=== PATIENT | male | born 1935 | race Caucasian/White ===

== ENCOUNTER 2018-03-06 14:17 | Outpatient (CLI) | payer MEDICARE, OTHER ==
[~2018-03-06] VITALS: Ht 180.3 cm; Wt 99.8 kg
[~2018-03-06 14:17] MED LIST: APIX5TAB3 PO; ASPI-1265 PO; ATOR10TA70 PO; CARV-50 PO; DOCU-28 PO; DULO20CA50 PO; FLO0.4C PO; FURO40TA4 PO; GABA300C PO; HYDR-4353 PO; METF-436 PO; POTA20TA10 PO; THYR90TA PO; TICA90TA PO
[2018-03-06 16:00] LABS: TOTAL HEMOGLOBIN 9.8 G/dl (14.0-18.0)
[2018-03-06] MEDS ORDERED: albuterol 2.5 MG/3 ML nebule NEB ONE (16:20)
== END 2018-03-06 23:59 | disposition home or self-care (01) ==
LOC: VAS 14:17
PROVIDERS: ATTEND Internal Medicine Cardiovascular Disease
DX: I65.23 Occlusion and stenosis of bilateral carotid arteries (principal); I48.91 Unspecified atrial fibrillation; I50.9 Heart failure, unspecified; R91.8 Other nonspecific abnormal finding of lung field; E11.9 Type 2 diabetes mellitus without complications; E78.5 Hyperlipidemia, unspecified; Z87.891 Personal history of nicotine dependence; Z96.651 Presence of right artificial knee joint; Z85.46 Personal history of malignant neoplasm of prostate; Z85.51 Personal history of malignant neoplasm of bladder
CPT/HCPCS: 71046; 85018; 93880; 94060; 94727; 94729; 94760

== ENCOUNTER 2018-06-30 07:49 | Observation (INO) | payer MEDICARE, OTHER ==
[~2018-06-30] VITALS: Ht 182.9 cm; Wt 112.0 kg
[2018-06-30 09:07] LABS: BASOPHILS # (AUTO) 0.1 X10'3 (0-0.2); BASOPHILS % (AUTO) 0.8 % (0-1); EOSINOPHILS # (AUTO) 0.2 X10'3 (0-0.9); EOSINOPHILS % (AUTO) 2.7 % (0-6); HEMATOCRIT 39.4 % (42.0-52.0); HEMOGLOBIN 13.2 g/dl (14.0-17.9); LYMPHOCYTES # (AUTO) 0.9 X10'3 (1.1-4.8); LYMPHOCYTES % (AUTO) 13.2 % (21-51); MEAN CORPUSCULAR HEMOGLOBIN 29.3 PG (27.0-31.0); MEAN CORPUSCULAR HGB CONC 33.4 g/dL (33.0-36.5); MEAN CORPUSCULAR VOLUME 87.9 FL (78-98); MEAN PLATELET VOLUME 8.9 FL (7.4-10.4); MONOCYTES # (AUTO) 0.4 X10'3 (0-0.9); MONOCYTES % (AUTO) 5.8 % (2-12); NEUTROPHILS # (AUTO) 5.1 X10'3 (1.8-7.7); NEUTROPHILS % (AUTO) 77.5 % (42-75); PLATELET COUNT 109 X10'3 (140-440); RED BLOOD COUNT 4.49 X10'6 (4.70-6.10); RED CELL DISTRIBUTION WIDTH 19.3 % (11.5-14.5); WHITE BLOOD COUNT 6.5 X10'3 (4.5-11.0)
[2018-06-30 09:18] LABS: ALANINE AMINOTRANSFERASE 29 U/L (12-78); ALBUMIN 3.4 G/DL (3.4-5.0); ALKALINE PHOSPHATASE 109 IU/L (46-116); ANION GAP 8 (8-16); ASPARTATE AMINO TRANSFERASE 24 U/L (10-37); BILIRUBIN,TOTAL 0.5 MG/DL (0.1-1.0); BLOOD UREA NITROGEN 14 MG/DL (7-18); BUN/CREATININE RATIO 16.5 (5.4-32.0); CALCIUM 9.2 MG/DL (8.5-10.1); CHLORIDE 105 MMOL/L (99-107); CREATININE 0.85 MG/DL (0.60-1.10); GLUCOSE 111 MG/DL (70-104); SODIUM 142 MMOL/L (135-145); TOTAL CARBON DIOXIDE 29.1 MMOL/L (24-32); TOTAL PROTEIN 6.7 G/DL (6.4-8.2); eGFR 87 ML/MIN
[2018-06-30 09:23] LABS: INR 1.1 INR
[2018-06-30 09:35] LABS: CLARITY,URINE CLEAR (Clear); COLOR,URINE YELLOW (Yellow); GLUCOSE, URINE NEGATIVE (Neg); KETONES,URINE NEGATIVE (Neg); LEUKOCYTE ESTERASE ,URINE NEGATIVE (Neg); NITRITES, URINE NEGATIVE (Neg); OCCULT BLOOD,URINE NEGATIVE (Neg); PROTEIN,URINE NEGATIVE (Neg); UROBILINOGEN,URINE 0.2 E.U/dL (0.2-1.0)
[2018-06-30 09:38] LABS: UA COLLECTION TYPE CLN CATCH MIDSTREAM
[2018-06-30] MEDS ORDERED: mag hydrox/Alum hydrox/simeth 30ml oral suspension PO PRN (11:25)
[2018-06-30] MEDS ORDERED: potassium Cl 40MEQ/NS 500ml 500 ML IV PRN ×2 (11:25)
[2018-06-30] MEDS ORDERED: magnesium 2GM in 50ml NS 50 ML IV PRN (11:25)
[2018-06-30] MEDS ORDERED: magnesium 4gm in 100ml NS 100 ML IV PRN (11:25)
[2018-06-30] MEDS ORDERED: normal saline 1000ML IV soln IVB ONE (11:25)
[2018-06-30] MEDS ORDERED: acetaminophen 325mg tablet PO PRN ×2 (11:25)
[2018-06-30] MEDS ORDERED: magnesium Cl slow-release 64mg tablet PO PRN (11:25)
[2018-06-30] MEDS ORDERED: potassium Cl 20 mEq SR tablet PO PRN ×2 (11:25)
[2018-06-30] MEDS ORDERED: magnesium hydroxide 30ml (MOM) UD suspension PO PRN (11:25)
[2018-06-30] MEDS ORDERED: ondansetron/PF 4mg/2ml inj IV PRN (11:25)
[2018-06-30] MEDS: K and/or MAG REPLACEMENT MC SCH (11:55)
[2018-06-30] MEDS: normal saline 1000ml 1,000 ML IV SCH ×2 (12:08→15:50)
--- NOTE | 2018-06-30 14:28 | NUR ---
janine([phone]) helps take care of pt and his , any question you can call her.
--- NOTE | 2018-06-30 14:55 | NUR ---
Pt received to room [facility] via [facility], transferred to bed. Pt oriented to room, [facility].
[2018-06-30 15:00] VITALS: BP 131/79
[2018-06-30 18:00] VITALS: BP 121/66
--- NOTE | 2018-06-30 18:37 | NUR ---
Problems reprioritized. Patient report given, questions answered & plan of care reviewed with Rocio. Addendum: 06/30/18 at 1838 by Mavis Lawrence RN Amended: Links added.
[2018-06-30] MEDS: duloxetine 20mg capsule.DR PO SCH (20:00)
[2018-06-30] MEDS: apixaban 5mg tablet PO SCH (20:17)
[2018-06-30] MEDS: carVEDilol 12.5mg tablet PO SCH (20:17)
[2018-06-30] MEDS ORDERED: temazepam 15mg capsule PO PRN (21:00)
--- NOTE | 2018-06-30 21:21 | NUR ---
Patient in room U 3014. I have received report from YANELI Gamble and had the opportunity to ask questions and assume patient care. Addendum: 06/30/18 at 2127 by Rocio Catherine RN Amended: Links added.
[2018-06-30 22:09] VITALS: BP 122/70
[2018-07-01] VITALS (24 sets, daily range): BP systolic 121–158; BP diastolic 51–109
[2018-07-01 06:13] LABS: HEMATOCRIT 39.2 % (42.0-52.0); HEMOGLOBIN 13.2 g/dl (14.0-17.9); MEAN CORPUSCULAR HEMOGLOBIN 29.6 PG (27.0-31.0); MEAN CORPUSCULAR HGB CONC 33.8 g/dL (33.0-36.5); MEAN CORPUSCULAR VOLUME 87.8 FL (78-98); MEAN PLATELET VOLUME 9.2 FL (7.4-10.4); PLATELET COUNT 109 X10'3 (140-440); RED BLOOD COUNT 4.46 X10'6 (4.70-6.10); RED CELL DISTRIBUTION WIDTH 19.4 % (11.5-14.5)
--- NOTE | 2018-07-01 06:16 | NUR ---
Problems reprioritized. Patient report given, questions answered & plan of care reviewed with YANELI Miner. Addendum: 07/01/18 at 0617 by Rocio Catherine RN Amended: Links added.
[2018-07-01 06:17] LABS: ALBUMIN 3.2 G/DL (3.4-5.0); ANION GAP 8 (8-16); BLOOD UREA NITROGEN 9 MG/DL (7-18); BUN/CREATININE RATIO 11.1 (5.4-32.0); CHLORIDE 108 MMOL/L (99-107); CREATININE 0.81 MG/DL (0.60-1.10); GLUCOSE 107 MG/DL (70-104); MAGNESIUM 1.6 MG/DL (1.5-2.4); POTASSIUM 3.9 MMOL/L (3.5-5.1); SODIUM 144 MMOL/L (135-145); TOTAL CARBON DIOXIDE 27.7 MMOL/L (24-32); eGFR > 90 ML/MIN
[2018-07-01] MEDS: thyroid, pork 30mg tablet PO SCH (07:18)
[2018-07-01] MEDS: apixaban 5mg tablet PO SCH ×2 (07:18→21:25)
[2018-07-01] MEDS: tamsulosin 0.4mg capsule PO SCH (07:18)
[2018-07-01] MEDS: duloxetine 20mg capsule.DR PO SCH ×2 (07:18→19:55)
[2018-07-01] MEDS: potassium Cl 20 mEq SR tablet PO SCH (07:18)
[2018-07-01] MEDS: carVEDilol 12.5mg tablet PO SCH ×2 (07:18→19:55)
[2018-07-01] MEDS: atorvastatin 10mg tablet PO SCH (07:18)
[2018-07-01] MEDS: gabapentin 300mg capsule PO SCH (07:18)
[2018-07-01] MEDS: normal saline 1000ml 1,000 ML IV SCH ×3 (07:19→20:00)
[2018-07-01] MEDS: K and/or MAG REPLACEMENT MC SCH (07:19)
--- NOTE | 2018-07-01 12:34 | NUR ---
PT TO TILT TABLE TEST. 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
[2018-07-01] MEDS: clopidogrel 75mg tablet PO SCH (14:33)
[2018-07-02 02:00] VITALS: BP 161/65
[2018-07-02] MEDS: normal saline 1000ml 1,000 ML IV SCH (03:23)
[2018-07-02 05:50] LABS: HEMATOCRIT 40.9 % (42.0-52.0); HEMOGLOBIN 13.8 g/dl (14.0-17.9); MEAN CORPUSCULAR HEMOGLOBIN 29.7 PG (27.0-31.0); MEAN CORPUSCULAR HGB CONC 33.7 g/dL (33.0-36.5); MEAN CORPUSCULAR VOLUME 88.1 FL (78-98); MEAN PLATELET VOLUME 9.3 FL (7.4-10.4); PLATELET COUNT 110 X10'3 (140-440); RED BLOOD COUNT 4.64 X10'6 (4.70-6.10); RED CELL DISTRIBUTION WIDTH 19.3 % (11.5-14.5)
[2018-07-02 06:00] VITALS: BP 161/102
[2018-07-02 06:00] LABS: ALBUMIN 3.4 G/DL (3.4-5.0); ANION GAP 6 (8-16); BLOOD UREA NITROGEN 12 MG/DL (7-18); BUN/CREATININE RATIO 12.8 (5.4-32.0); CALCIUM 9.3 MG/DL (8.5-10.1); CHLORIDE 109 MMOL/L (99-107); CREATININE 0.94 MG/DL (0.60-1.10); GLUCOSE 113 MG/DL (70-104); MAGNESIUM 1.7 MG/DL (1.5-2.4); SODIUM 144 MMOL/L (135-145); TOTAL CARBON DIOXIDE 29.5 MMOL/L (24-32); eGFR 77 ML/MIN
--- NOTE | 2018-07-02 06:32 | NUR ---
Patient in room PCU 3014. I have received report from YANELI Yao and had the opportunity to ask questions and assume patient care.
[2018-07-02] MEDS: K and/or MAG REPLACEMENT MC SCH (07:00)
[2018-07-02] MEDS: atorvastatin 10mg tablet PO SCH (07:11)
[2018-07-02] MEDS: clopidogrel 75mg tablet PO SCH (07:11)
[2018-07-02] MEDS: apixaban 5mg tablet PO SCH (07:11)
[2018-07-02] MEDS: gabapentin 300mg capsule PO SCH (07:11)
[2018-07-02] MEDS: thyroid, pork 30mg tablet PO SCH (07:11)
[2018-07-02] MEDS: duloxetine 20mg capsule.DR PO SCH (07:11)
[2018-07-02] MEDS: carVEDilol 12.5mg tablet PO SCH (07:11)
[2018-07-02] MEDS: potassium Cl 20 mEq SR tablet PO SCH (07:11)
[2018-07-02] MEDS: tamsulosin 0.4mg capsule PO SCH (07:11)
[2018-07-02 08:00] VITALS: BP_SYST 113; BP_SYST 114; BP_SYST 146; BP_DIAS 69; BP_DIAS 77; BP_DIAS 81
[2018-07-02 09:54] LABS: HEMOGLOBIN A1C 6.1 % (4.5-6.2)
--- NOTE | 2018-07-02 10:26 | NUR ---
Paged Addictions Counselor Assistant that patient does not have a provider who manages his DM.
[2018-07-02 11:00] VITALS: BP 113/73
--- NOTE | 2018-07-02 11:24 | NUR ---
Per Call Taker patient's ride will be here in 45 min.
--- NOTE | 2018-07-02 12:26 | NUR ---
Ride has not arrived yet.
--- NOTE | 2018-07-02 13:41 | NUR ---
Discharged 1300. IV and tele DC'd. Stable per MD for DC. DM survival skills given.
== END 2018-07-02 13:00 | disposition home health service (06) ==
LOC: ER 07:50 → PCU 3S 14:48 → CMPBEDREQ 19:27
PROVIDERS: ADMIT Family Medicine; ATTEND Family Medicine
DX: R55 Syncope and collapse (principal); I48.0 Paroxysmal atrial fibrillation; G30.9 Alzheimer's disease, unspecified; F02.80 Dementia in other diseases classified elsewhere, unspecified severity, without behavioral disturbance, psychotic disturbance, mood disturbance, and anxiety; E78.5 Hyperlipidemia, unspecified; I11.0 Hypertensive heart disease with heart failure; I50.30 Unspecified diastolic (congestive) heart failure; E11.9 Type 2 diabetes mellitus without complications; I25.10 Atherosclerotic heart disease of native coronary artery without angina pectoris; G47.33 Obstructive sleep apnea (adult) (pediatric); E78.00 Pure hypercholesterolemia, unspecified; G89.29 Other chronic pain; M19.90 Unspecified osteoarthritis, unspecified site; F17.210 Nicotine dependence, cigarettes, uncomplicated; Z85.9 Personal history of malignant neoplasm, unspecified; Z95.5 Presence of coronary angioplasty implant and graft; Z98.61 Coronary angioplasty status
CPT/HCPCS: 36415; 70450; 71045; 72125; 80048; 80053; 81003; 83036; 83735; 84443; 84484; 85025; 85027; 85610; 87070; 93005; 93306; 93660; 93880; 96360; 96361; 97116; 97161; 97530; 99284; G0378; J7030